=== PATIENT | male | born 1960 | race Caucasian/White ===

== ENCOUNTER → 2023-11-06 | Outpatient (CLI) | payer MEDICARE ==
--- NOTE | 2023-11-10 19:59 | CTL ---
EXAMINATION TYPE: CT Low Dose Lung DATE OF EXAM ORDERED: 11/09/2023 HISTORY: . Lung cancer screening CT DLP: 123.[address] CTDI: 3.1 mGy Automated exposure control for dose reduction was used. SCREENING VISIT: Initial COMPARISON: None TECHNIQUE: Low dose computed tomography scan was performed through the chest at 1 mm thick sections a nd reconstructed images in the coronal plane at [address] DIAGNOSTIC QUALITY: Satisfactory FINDINGS: LUNG NODULES: None. LUNGS: COPD: Severity: None Fibrosis: Severity: None Lymph nodes: None Other findings: None RIGHT PLEURAL SPACE: Effusion: None Calcification: None Thickening: None Pneumothorax: None LEFT PLEURAL SPACE: Effusion: None Calcification: None Thickening: None Pneumothorax: None HEART: Other: Ascending thoracic aorta at the level the main pulmonary artery measures 4.2 cm. The main pul monary artery at the bifurcation measures 2.7 cm. Heart Size: Normal Coronary calcification: Mild Pericardial effusion: None OTHER FINDINGS: Upper abdomen: Normal Bony thorax: Normal Supraclavicular region: Normal IMPRESSION: No suspicious changes to suggest primary or metastatic neoplasm FOLLOW UP CT CHEST RECOMMENDATION: Low-dose CT chest one year CT LUNG RAD: Lung-Rad 1 Negative
== END | disposition home or self-care (01) ==
LOC: RADCTMAIN 09:41
PROVIDERS: ATTEND Family Medicine
DX: Z12.2 Encounter for screening for malignant neoplasm of respiratory organs (principal); Z13.6 Encounter for screening for cardiovascular disorders; F17.210 Nicotine dependence, cigarettes, uncomplicated
CPT/HCPCS: 71271

== ENCOUNTER → 2023-11-16 | Outpatient (CLI) | payer MEDICARE ==
--- NOTE | 2023-11-16 12:20 | US ---
EXAMINATION TYPE: US Aorta Screening DATE OF EXAM: 11/16/2023 COMPARISON: NONE CLINICAL INDICATION: Male, 63 years old with history of Z13.6 SCREENING CARDIOVASCULAR DISORDER; scre ening TECHNIQUE: Multiple sonographic images of the abdominal aorta are obtained. FINDINGS: EXAM MEASUREMENTS: Abdominal Aorta: Proximal: 1.8 x 1.9cm Mid: 2.1 x 2.2cm Distal: 1.9 x 2.2cm Bifurcation: Right Iliac: 1.0 x 1.3cm Left Iliac: 1.0 x 1.3cm [employer] NOTES: No evidence of AAA at this time. calcifications noted throughout IMPRESSION: No evidence for abdominal aortic aneurysm.
== END | disposition home or self-care (01) ==
LOC: RADUSWWP 07:18
PROVIDERS: ATTEND Family Medicine
DX: Z13.6 Encounter for screening for cardiovascular disorders (principal); Z12.2 Encounter for screening for malignant neoplasm of respiratory organs; F17.210 Nicotine dependence, cigarettes, uncomplicated
CPT/HCPCS: 76706